=== PATIENT | female | born 1990 | race Caucasian/White ===

== ENCOUNTER 2024-11-02 22:40 | Inpatient (IN) | payer SELFPAY ==
--- OUTSIDE RECORDS SUMMARY | 2019-01-23 09:40 | XMS_ITS | Continuity of Care Document ---
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 Name Role Phone Clarisa Meyer Unavailable Unavailable Allergies, Adverse Reactions, Alerts Substance Reaction Status Criticality No Known Allergies Active No Inform ation Medications Medication Instructions Dosage Effective Dates (start - stop) Status Comments nicotine 21 mg/24 hr daily transdermal patch apply 1 patch by transdermal route every day and remove at bedtime 21 MG - Active Problems Condition Type Effective Dates (start - stop) Clini gerry Status Comments No Known Problems Procedures Procedure Date PREV VISIT, NEW, AGE 18-39 IMMUNIZATION ADMIN FLU VAC NO PRSV 4 KYLE 6 Months+ HIV ANTIGEN W/HIV ANTIBODIES SIALIDASE ENZYME ASSAY RPR CHLAMYDIA/GONNORRHEA TRICHOMONAS VAGINALIS AMPLIF THINPREP TIS PAP AND HPV mRNA E6/E7 REFL EX HPV 16,18/45 Patient Left / No Show Results Test Name Date and Time Measure Units Reference Range Abnormal Flag Status Comments Panel Description: BV Enzyme Activity Final BV Enzyme Activity 15:12:11 Negative Negative Final Panel Description: HIV 1+2 Ab+HIV1 p24 Ag Final HIV-1/2 Ag/Ab 15:24:00 Negative Negative Final Panel Description: RPR w/Reflex Final RPR w/Reflex 15:24:00 Non-reactiv e Non-reactiv e Final Panel Description: Chlam/GC/Trich-swab Final Chlamydia 15:12:11 Not Detected Not Detected Final N gonorrhoeae 15:12:11 Not Detected Not Detected Final Trichomonas 15:12:11 Not Detected Not Detected Final Panel Description: Human pap illoma virus 16+18+31+33+35+39+45+51+52+56+58+59+66+68 E6+E7 mRNA Final CLINICAL INFORMATION: 15:12:11 SEE NOTE Final Routine exam LMP: 15:12:11 [id number] Final PREV. PAP: 15:12:11 SEE NOTE Final 2017 NORMAL PREV. BX: 15:12:11 SEE NOTE Final AGE 16 SHOWED HPV SOURCE: 15:12:11 Cervix Final STATEMENT OF ADEQUACY: 15:12:11 SEE NOTE Final Satisfactory f or evaluation.Endocer vical/transformati on zone componentpresent. INTERPRETATION /RESULT: 15:12:11 SEE NOTE Final Negative for intraepithelial lesion or malignancy. COMMENT: 15:12:11 SEE NOTE Final This Pap test has been evaluated with computerassisted technology. CYTOTECHNOLOGI ST: 15:12:11 SEE NOTE Final SANCHEZ, CT(ASCP)C T Screening location:[facility] [address] [place] [address] [address]: 15:12:11 SEE NOTE Final ABC, CT(ASCP)C T screening location: [place] [address] [place] [address] COMMENT 15:12:11 SEE NOTE Final EXPLANATORY NO TE: The Pap is a screening test for cervical cancer. It is not a diagnostic test and is subject to false negative and false positive results. It is most reliable when a satisfactory sample, regularly obtained, is submitted with relevant clinical findings and history, and when the Pap result is evaluated along with historic and current clinical information. HPV mRNA E6/E7 15:12:11 Not Detected Not Detected Final This test was performed using the APTIMA HPV Assay ([employer] This assay detects E6/E7 viral messenger RNA (mRNA) from 14high-risk HPV types (16,18,31,33,35,39 ,45,51,52,56,58,59 ,66,68). The analytical performance characteristics ofthis assay have been determined by deltamethod. The modifications have not beencleared or approved by the FDA. This assay hasbeen validated pursuant to the CLIA regulationsand is used for clinical purposes. Advance Directives Directive Yes / No Effective Date File Name No Information Encounters Encounter Description Practice Location Reason(s) For Visit Diagnoses Date Provider Providers Copied on Encounter PREV VISIT, NEW, AGE 18-39 [facility], [id number], [id number], [place] tel:[phone] [facility] preventive exam (chief complaint) Encounter for gynecological exam w/o abnormal findingRoutine screening for STI (sexually transmitted infection) Vicenta Mckenna. [address] [place] [address], [id number] , [place]. tel:[phone] Referring Provider: Clarisa Yadav, [address] [place] [address], [id number] . tel:[phone] [facility], [id number], [id number], [place] tel:[phone] [facility] No Information 9 Vicenta Mckenna. [address] [place] [address], [id number] , [place]. tel:[phone] Referring Provider: Clarisa Yadav, [address] [place] [address], [id number] . tel:[phone] Family History Family Member Type Diagnosis Age At Onset No Information Immunizations Vaccine Date Status Comments Flu Vaccine 6 Months and older administered Note: VIS 11/14/2018 given 01/23/2019 RICK SANCHEZ ; Source: New Immunization Record Payers Payer name Insurance type Covered alliance party ID Authoriza brandi(s) M [employer] Choice Plus CI [id number] M [employer] Choice Plus [id number] Social History Type Description Quantity Date Captured Comments Alcohol Use Details Unknown Caffeine Use Details Unknown Tobacco Use Status Smoking Status Current some day smoker Smoking Tobacco Use Details Cigarette: Age Started: 28 Cigarette: No Details Available Sex Female Sexual Orientation Heterosexual Gender Identity Female Vital Signs Date / Time: Height Weight BMI Pulse Rate Blood Pressure Temperature Respiratory Rate Body Surface Area Head Circumference Head Circ. Percentile Wt./Flaco. Percentile BMI percentile Pulse Ox Inhaled Ox 2:40 PM 60.50 in 66.043 kg (145.60 lbs) 27.9 7 kg/m eter (2) 75 /min 110/74 mm[Hg] 98.00 F 18 /min 1.68 meter(2) 99 % Chief Complaint And Reason For Visit From encounter dated '01/23/2019 14:40'. preventive exam (chief complaint). Description: Currently : no. : 1. Parity: Term: 1. Livin. Patient is not contemplating . The patient states she uses condoms, male for control. Last LMP was 12/28/2018. Her menses is regular with normal flow with a frequency of every 28 days. Negative for dysmenorrhea and menorrhagia. Negative for: breast discharge, breast lump(s), breast pain and breast self exam. Menopausal symptoms negative for: hot flashes, insomnia, nightsweats and vaginal dryness. Pertinent negatives include vaginal discharge and vaginal itching. She does not take calcium. She does not take Vitamin D. She does not take multivitamins. She does not take Folic acid. The patient does use tobacco. Tobacco cessation has been discussed. Additional information: last pap around 2017- normal, she found out she has hpv at age 14, she did have biopsy of hercervix at 14 and it was normal other than hpv. pt used dull razor and now has ingrown hairs/spots, wants to be tested. Reason For Referral Reason For Referral No Information History Of Present Illness Encounter Date Complaint History Of Prese nt Illness preventive exam Currently pregna nt: no. : 1. Parity: Term: 1. Livin. Patient is not contemplating . The patient states she uses condoms, male for control. Last LMP was 12/28/2018. Her menses is regular with normal flow with a frequency of every 28 days. Negative for dysmenorrhea and menorrhagia. Negative for: breast discharge, breast lump(s), breast pain and breast self exam. Menopausal symptoms negative for: hot flashes, insomnia, night sweats and vaginal dryness. Pertinent negatives include vaginal discharge and vaginal itching. She does not take calcium. She does not take Vitamin D. She does not take multivitamins. She does not take Folic acid. The patient does use tobacco. Tobacco cessation has been discussed. Additional information: last pap around 2017- normal, she found out she has hpv at age 14, she did have biopsy of her cervix at 14 and it was normal other than hpv. pt used dull razor and now has ingrown hairs/spots, wants to be tested. Functional Status Date Functional Assessmen t Pain Score 0/10 Instructions Date Instruction Additional Infor ida will do sti screenin g and contact pt with results Related to Routine screening for STI (sexually transmitted infection) cbe, pelvic and pap performed todaywe will contact pt with results Related to Encounter for gynecological exam w/o abnormal finding Weight control education Related to Encounter for gynecological exam w/o abnormal finding Assessments Type Assessment Date assessment Encounter for gynecological exam w/o abnormal finding assessment Routine screening for STI (sexua lly transmitted infection) Mental Status Date Cognitive Assessment Orientation - Wall ed to time, place, person, situation. Patient Care Teams Name Effective Dates (start - stop) Status Members No Information
[2024-11-02 22:41] VITALS: BP 122/69; PULSE 90; RESP 18; TEMP 36.8; O2SAT 96; BMI 25.3
--- NOTE | 2024-11-02 22:43 | XRR_ITS ---
PROCEDURE INFORMATION: Exam: XR Chest Exam date and time: 11/02/2024 10:54 PM Age: 34 years old Clinical indication: Injury or trauma; Fall; Blunt trauma (contusions or hematomas); Patient states she fell out of a tree that she climbed because she was being chased by dogs. C/O left rib pain. Admits to methamphetamine use. TECHNIQUE: Imaging protocol: Radiologic exam of the chest. Views: 1 view. COMPARISON: No relevant prior studies available. FINDINGS: Lungs: Unremarkable. No consolidation. Incidentally noted azygos lobe. Pleural spaces: Unremarkable. No pleural effusion. No pneumothorax. Heart/Mediastinum: Unremarkable. No cardiomegaly. Bones/joints: Unremarkable. XR/XR chest 1V portable [id number] IMPRESSION: No acute findings.
--- NOTE | 2024-11-02 22:43 | CTR_ITS ---
PROCEDURE INFORMATION: Exam: CT Head Without Contrast Exam date and time: 11/02/2024 11:00 PM Age: 34 years old Clinical indication: Injury or trauma; Fall; Blunt trauma (contusions or hematomas); Patient states she fell out of a tree that she climbed because she was being chased by dogs. Abrasion to frontal. Admits to methamphetamine use. TECHNIQUE: Imaging protocol: Computed tomography of the head without contrast. Radiation optimization: All CT scans at this facility use at least one of these dose optimization techniques: automated exposure control; mA and/or kV adjustment per patient size (includes targeted exams where dose is matched to clinical indication); or iterative reconstruction. COMPARISON: No relevant prior studies available. RADIATION DOSE METRICS: Total DLP (mGy-cm): 1760.69 FINDINGS: Brain: Normal. No hemorrhage. Unremarkable white matter. No mass effect. Cerebral ventricles: No ventriculomegaly. Paranasal sinuses: Visualized sinuses are unremarkable. No fluid levels. Mastoid air cells: Visualized mastoid air cells are well aerated. Bones: Unremarkable. No acute fracture. Soft tissues: Unremarkable. CT/CT head wo con* [id number] IMPRESSION: No acute intracranial abnormality.
--- NOTE | 2024-11-02 22:48 | PC.NURSE ---
Pt unable to answer suicide assessment question due to being under the influence of Methamphetamine.
--- NOTE | 2024-11-02 22:52 | W.ED.PSYCHS ---
HPI - Psych General: Chief Complaint: Psychiatric Symptoms Stated Complaint: SUBSTANCE ABUSE Time Seen by Provider: 11/02/24 22:40 Source: patient Mode of arrival: ambulatory Limitations: no limitations History of Present Illness: 34-year-old female who states that she has been using meth today patient is quite psychotic police were called because she was trying to climb trees and was acting very erratic she had had fell out of a tree she is unsure how far she denies any injuries but does have an abrasion to her head. Patient has flight of ideas here and is not safe on her own. She believe that she had been chased by dogs. Associated symptoms: Reports auditory hallucinations Related Data Home Medications ?Medication ?Instructions ?Recorded ?Confirmed No Known Home Medications 04/23/24 04/23/24 Allergies Allergy/AdvReac Type Severity Reaction Status Date / Time No Known Allergies Allergy Unverified 04/23/24 12:13 Review of Systems Const: Denies: fever(s), chills, body aches or change in appetite ENMT: Denies: throat pain or dental pain Card: Denies: chest pain Resp: Denies: dyspnea GI: Denies: abdominal pain, nausea, vomiting or diarrhea : Denies: dysuria Musc: Denies: neck pain or back pain Skin/Breast: Denies: rash Neuro: Denies: headache(s) Psych: Reports: paranoia and auditory hallucinations [facility] ED PFSH: Social History Smoking and tobacco/nicotine status: current every day tobacco/nicotine user Physical Exam Const: COMMON NORMALS: patient oriented x3 HENMT: COMMON NORMALS: normocephalic and atraumatic HEAD & SCALP: normocephalic and atraumatic Eye: COMMON NORMALS: Equal, round and reactive pupils present and EOMs intact bilaterally PUPIL: Yes Equal, round and reactive pupils present Neck/C-Spine: COMMON NORMALS: full ROM and supple Chest: COMMONS NORMALS: normal inspection of the chest Resp: COMMON NORMALS: normal respiratory effort, No retractions, No use of accessory muscles and clear to auscultation bilaterally AUSCULTATION: clear to auscultation bilaterally Cardio: COMMON NORMALS: regular rate, regular rhythm and No murmurs present (Cardio) RATE: regular rate RHYTHM: regular rhythm GI: COMMON NORMALS: Normal to inspection, nondistended, normoactive bowel sounds present, Soft to palpation, non-tender and no masses PALPATION: Yes Soft to palpation Extremity: COMMON NORMALS: normal to inspection and full ROM Neuro: COMMON NORMALS: patient oriented x3, moves all extremities and no focal motor deficits Psych: COMMON NORMALS: cooperative ATTITUDE: Yes paranoid and Yes Belligerent attititude/behavior present ACTIVITY/MOTOR BEHAVIOR: Yes fidgeting and Yes hyperactivity Skin: COMMON NORMALS: no rashes or lesions noted and no wounds GENERAL SKIN EXAM: no rashes or lesions noted Course Vital Signs: Vital signs: Vital Signs Temperature 98.2 F 11/02/24 22:41 Pulse Rate 90 11/02/24 22:41 Respiratory Rate 18 11/02/24 22:41 Blood Pressure 122/69 11/02/24 22:41 Pulse Oximetry 96 11/02/24 22:41 Oxygen Delivery Me thod Room Air 11/02/24 22:41 MDM - Psych Medical Decision Making Patient presents with 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 Spoke to psychiatrist will admit Medical Records I reviewed the patient's medical records. Lab Data Radiology Impressions Head CT 11/02/24 22:43 IMPRESSION: No acute intracranial abnormality. 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
[2024-11-02] MEDS: LORazepam 1 MG/0.5 ML injection 2 MG IM (23:21)
--- NOTE | 2024-11-02 23:44 | PC.NURSE ---
96 [facility] Pt served with copy of 96 [facility] by this RN and security. Pt alert, but not able to accurately comprehend information. Pt speaking quickly and a lot, with flight of ideas. No questions at this time, pt stated is someone climbing up a tree not grounds enough to hold someone on?
[2024-11-02 23:59] LABS: Hematocrit 41.7 % (36-47); Hemoglobin 14.30 g/dL (11.27-16.99); Mean Corpuscular HGB Conc 34.3 g/dL (30-55); Mean Corpuscular Hemoglobin 30.6 pg (27-33); Mean Corpuscular Volume 89.3 fl (85-98); Nucleated Red Blood Cells % 0 %; Platelet Count 320 10^3/cmm (157-399); Red Blood Count 4.67 10^6/uL (3.85-5.65); White Blood Count 20.23 10^3/uL (3.29-11.43)
[2024-11-03] VITALS (10 sets, daily range): BP systolic 86–118; BP diastolic 55–73; PULSE 66–87; RESP 16–18; TEMP 36.6–37.1; O2SAT 91–99
[2024-11-03 00:10] LABS: Alanine Aminotransferase 16 U/L (0-33); Albumin Level 4.1 g/dL (3.5-5.2); Alkaline Phosphatase 75 U/L (35-105); Anion Gap 18.1 (5-19); Aspartate Amino Transferase 28 U/L (0-32); Blood Urea Nitrogen 12 mg/dL (6-20); Calcium 8.9 mg/dL (8.5-10.5); Carbon Dioxide 19 mmol/L (22-29); Chloride 105 mmol/L (98-107); Creatinine Clr Calc Pharmacy 75.3135; Globulin 2.9 g/dL (1.3-4.6); Glucose 96 mg/dL (65-115); Osmolality Calculated 286 mOsm/kg (285-295); Potassium 4.1 mmol/L (3.5-5.1); Sodium 138 mmol/L (136-145); Total Protein 7.0 g/dL (6.6-8.7)
[2024-11-03 00:11] LABS: Acetaminophen < 5.0 ug/mL (10-30); Alcohol Level < 10 mg/dL (0-10); Salicylate < 0.3 mg/dL (3-10)
[2024-11-03 01:30] LABS: HCG Qualitative Urine. Negative (Negative)
[2024-11-03 01:40] LABS: Glucose Urine UA Negative (Normal); Nitrate Urine Negative (Negative); Specific Gravity, Urine 1.015 (1.005-1.030)
[2024-11-03 01:43] LABS: Add Urine Microscopic? YES
[2024-11-03 01:55] LABS: UA Slide Review UA Slide Review Perf
[2024-11-03 01:59] LABS: PCP Screen Urine Negative (Negative)
--- NOTE | 2024-11-03 02:07 | CTR_ITS ---
PROCEDURE INFORMATION: Exam: CT Abdomen And Pelvis Without Contrast Exam date and time: 11/03/2024 2:25 AM Age: 34 years old Clinical indication: Abnormal findings; Abnormal lab test; Elevated wbc; Wbc of 20k with microhematuria. ; Additional info: White count 20,000, cystitis TECHNIQUE: Imaging protocol: Computed tomography of the abdomen and pelvis without contrast. Sagittal and coronal reformatted images were also reviewed. Radiation optimization: All CT scans at this facility use at least one of these dose optimization techniques: automated exposure control; mA and/or kV adjustment per patient size (includes targeted exams where dose is matched to clinical indication); or iterative reconstruction. COMPARISON: CR (CHEST, ) 11/02/2024 10:54 PM RADIATION DOSE METRICS: Total DLP (mGy-cm): 693.39 FINDINGS: Limitations: Evaluation of solid organs and vasculature is limited without intravenous contrast. Lungs: Visualized lungs are clear. Pleural spaces: No pleural effusion. Heart: Visualized portions of the heart are unremarkable. Liver: The liver is unremarkable. Gallbladder and biliary ducts: The gallbladder is unremarkable. No biliary ductal dilatation. Pancreas: The pancreas is unremarkable. No pancreatic ductal dilatation. Spleen: The spleen is unremarkable. Adrenal glands: The right and left adrenal glands are unremarkable. Kidneys and ureters: The right and left kidneys are unremarkable. The right and left ureters are unremarkable. Stomach and bowel: Fluid within the small bowel and colon without evidence of bowel wall thickening. Appendix: The appendix is visualized and is unremarkable. No findings to suggest acute appendicitis. Intraperitoneal space: No free intraperitoneal air. No ascites. No loculated fluid collections to suggest an abscess. Vasculature: No evidence for aortic aneurysm. Lymph nodes: No lymphadenopathy. Urinary bladder: Limited visualization of the pelvis due to streak artifact. No acute abnormality of the bladder otherwise. Reproductive: Unremarkable as visualized. Bones/joints: No acute fracture. Soft tissues: No acute abnormality in the extra-abdominal soft tissues. CT/CT kidney stone [id number] IMPRESSION: 1. Fluid within the small bowel and colon without evidence of bowel wall thickening. This may reflect viral gastroenteritis in the appropriate clinical situation. 2. Incidental/nonacute findings are listed in the report.
[2024-11-03 02:25] LABS: Lactic Sepsis W/Reflex 1.5 mmol/L (0.5-2.2)
[2024-11-03] MEDS: cefTRIAXone 1,000 mg SDV 1000 MG IVP (02:32)
--- NOTE | 2024-11-03 06:52 | PM.HP ---
Providers/Chief Complaint Admitting Physician: MARIA DOLORES MELÉNDEZ DO Primary Care Provider: Anna Marie Chandler NP Chief Complaint: SUBSTANCE ABUSE History of Present Illness Leah Rosa is a 34 year old female with medical history significant for drug use and abuse especially methamphetamine. Patient had gotten into methamphetamine induced psychosis for that reason patient was supposed to go to [facility] to be optimized. Upon arriving to the emergency room patient was evaluated and the urinalysis showed the patient has urinary tract infection with a white count of 20,000. Because of white count of 28,000 the [facility] will not take this patient and they wanted patient to be optimized before I can come in for hide care of methamphetamine induced psychosis. I have ordered antibiotics with ceftriaxone 2 g IV and daily. Patient was admitted this morning after 12 midnight optimized and then sent patient to psych. Review of Systems Narrative: System review upon 10 organ review were entirely unremarkable except for patient being psychotic after taking methamphetamine. Medications/Allergies Home Medications ?Medication ?Instructions ?Recorded ?Confirmed ?Last Taken ?Type No Known Home Medications 04/23/24 04/23/24 Unknown History Allergies Allergy/AdvReac Type Severity Reaction Status Date / Time No Known Allergies Allergy Unverified 04/23/24 12:13 PFSH Acute PFSH: Social History Smoking and tobacco/nicotine status: current every day tobacco/nicotine user Vitals/I&O/Wt Last Vital Signs Temp 98.2 F 11/02/24 22:41 Pulse 78 11/03/24 04:00 Resp 16 11/03/24 04:00 BP 118/62 11/03/24 04:00 Pulse Ox 98 11/03/24 04:00 O2 Del Method Room Air 11/03/24 04:00 Weight last 48 hrs Weight 62.868 kg Physical Exam Narrative: Patient is seen and evaluated Sleepy not waking up in bed very comfortable and on room air. HEENT normocephalic atraumatic neck neck is supple cardiovascular heart rate is regular lungs are pretty much clear abdomen soft nontender nondistended unremarkable extremities are intact no edema has good pulses neurology has no focality lab studies lab studies reviewed and noted for elevated white count and urinary tract infection. Data 11/02/24 23:43 11/02/24 23:43 A&P Assessment and plan 1. UTI (urinary tract infection): UTI Admit to general medical floor ICU per protocol because of drug-induced psychosis patient is on room air and hemodynamically stable Patient on ceftriaxone follow-up with cultures and optimize accordingly IV fluid initiated on this patient. 2. Acute psychosis: Patient with acute psychosis due to drug use of methamphetamine Patient slept well overnight and on ED hold Patient was given Ativan by the emergency room department I did not give anything patient is doing okay and has been sleeping Drug-induced psychosis deferred to psychiatry Psychiatry will not take the patient because of elevated white count with UTI They would like patient optimized and then they will take the patient Plan: See above. GI and DVT prophylaxis in place PDMP PDMP Reviewed: Not Reviewed Attestations Medical Necessity Statement*: Patient with much white count and UTI and also undergoing drug-induced psychosis with this of at least 2 midnights to optimize care. Coding Level of Care Code Acute Code for [facility] Diagnoses UTI (urinary tract infection) N39.0 Acute psychosis F23 Time Spent (min) 60
--- NOTE | 2024-11-03 07:03 | PC.NURSE ---
ASSUMED CARE OF PT AT 0700 FROM [facility]. BLOOD CULTURES ORDERED AT 0207. DEVELOPMENT REPRESENTATIVE RNTAMARA, ADMINISTERED ANTIBIOTICS AT 0232. BOTH SETS OF BLOOD CULTURES WERE NOT OBTAINED PRIOR TO ANTIBIOTIC ADMINSTRATION. ANOTHER SET OF ANTIBIOTICS ORDERED AT 0700. THIS NURSE NOTIFIED DR. URBAN OF SITUATION AND ASKED IF HE STILL WANTED BLOOD CULTURES DRAWN. DR. URBAN GAVE VERBAL ORDERS TO PROCEED WITH BLOOD CULTURES PRIOR TO FURTHER ANTIBIOTIC ADMINISTRATION. LAB CALLED AND NOTIFIED AT THIS TIME.
[2024-11-03] MEDS: heparin 5,000 unit/mL INJ 1 mL 5000 UNIT SUBCUT (07:21)
[2024-11-03] MEDS: cefTRIAXone 2,000 mg SDV 2000 MG IVP (07:34)
[2024-11-03] MEDS: blistex lip oint 7 gm Tube 1 APPLIC TOPICAL (09:41)
[2024-11-03 14:04] LABS: Iron 41 ug/dL (37-145); Total Iron Binding Capacity 280 mcg/dl; Unsaturated Iron Binding 239 ug/dL (112-347)
[2024-11-03 14:18] LABS: HIV 1 & 2 Antigen Non-Reactive (Non-Reactiv)
[2024-11-03 14:29] LABS: Hepatitis A Antibody IgM Non-Reactive (Nonreactive); Hepatitis B Surface Antigen Non-Reactive (Nonreactive)
--- NOTE | 2024-11-03 14:53 | PC.NURSE ---
During assessment the pt had scratches in various areas all over the body,tattoos upper shoulder, right thigh. there was a small cut underneath her left big toe that appeared to be healing fine
--- NOTE | 2024-11-03 15:00 | PC.ADMIT ---
Homeless Admission Note: The patient,Leah Rosa,34 y/o, was given written information regarding hospital policies, unit procedures and contact persons. Patient's smoking status: current every day smoker. Vital Signs - 8 hr 11/03/24 07:35 11/03/24 08:57 11/03/24 12:18 Temperature Pulse Rate 69 66 76 Respiratory Rate 16 16 Blood Pressure 95/58 107/72 107/67 Pulse Oximetry 98 98 97 Oxygen Delivery Method Room Air Room Air Room Air 11/03/24 12:35 11/03/24 13:20 11/03/24 13:47 Temperature 97.8 F Pulse Rate 74 73 Respiratory Rate 16 Blood Pressure 107/67 110/73 Pulse Oximetry 97 94 Oxygen Delivery Method Room Air During assessment the pt had scratches in various areas all over the body,tattoos upper shoulder, right thigh. there was a small cut underneath her left big toe that appeared to be healing fine
--- NOTE | 2024-11-03 15:09 | P.NPUHP_ITS ---
Providers/Chief Complaint 2 Admitting Physician: Maria Dolores Castillo MD Primary Care Provider: Anna Marie Chandler NP Chief Complaint: SUBSTANCE ABUSE HPI NPU History of Present Illness Leah Rosa is a 34 year old female who presented to the emergency department with increased confusion with complaints about how she had felt paranoid and stated that she feels that others around her were somehow trying to get her. She was admitted to the neuropsychiatric unit for further evaluation and treatment. She was a poor historian but described having used methamphetamine for a few years. She had endorsed a history of IV drug use and reported a past history of alcohol use as well. The patient had denied any depression. She denied any prior history of inpatient hospitalizations. She reports that she does have a past history of being quite confused when taking amphetamines. Her urine drug screen was positive for amphetamines and marijuana. The patient had endorsed that she has been living in [place] for approximately 1-1/2 years and states that she has been homeless for a period of time. She reports that she had been climbing up a tree in order to avoid a dog from biting her. She states that the tree had been cut down by a woman named Violeta and she reports that she had fallen on her head. The patient's CT was negative here at the hospital. The patient denies having any thoughts of hurting herself or others. She reports that she uses marijuana to help her manage her moods. Psychiatric history: She had reported no prior history of inpatient hospitalizations. She reported no outpatient treatment currently. Substance abuse history: She reports using alcohol on a regular basis along with a history of methamphetamine use for at least 3 years along with routine daily use of marijuana. Medical history: None reported Surgical history: None Allergies: Pollen Medications: None Legal history: She had reported that she had been 3-1/2 months in assisted here for a DUI from the use of alcohol. She had also reported having been arrested and put on a restraining order from her grandmother lives in [facility]. Family psychiatric history: None reported Social history: The patient reports that she was raised in [facility] and was adopted by her grandmother at the age of 4 as her biological parents had been neglectful and were unable to take care of her. She reported that she has been previously and has a 14-year-old son that lives with the patient's grandmother. She reports that she had moved to [place] a year and a half ago after giving up a good job working at [employer] and stated that she is currently unemployed and living in an that she owns. Meds NPU Home Medications ?Medication ?Instructions ?Recorded ?Confirmed ?Last Taken ?Type No Known Home Medications 04/23/24 08/0 07/25 Unknown History Allergies Allergy/AdvReac Type Severity Reaction Status Date / Time No Known Allergies Allergy Unverified 04/23/24 12:13 PFSH NPU 2 PFSH: Social History Smoking and tobacco/nicotine status: current every day tobacco/nicotine user Mental Status Exam 2 MSE Comments: She is a casually dressed white female with poor hygiene who was laying down in her bedroom in the dark and appeared her stated age. She was alert and oriented to person place month and year but not date. There was no evidence of any abnormal involuntary motor movements tics or tremors appreciated. Her speech was normal in regards to volume with decreased rate and normal prosody. Her mood was described as okay. Her affect appeared odd and subdued. Her thought process was tangential and circuitous. Her thought content revealed no suicidal or homicidal ideation. There was some ideas of reference although no evidence of delusional thinking but some vague paranoia. She did not actively appear to be responding to internal stimuli. Her attention span was poor. Her recent and remote memory appeared poor. Her insight was poor. Her judgment was poor. Her impulse control appeared limited. Vitals/I&O/Wt Last Vital Signs Temp 97.8 F 11/03/24 13:20 Pulse 73 11/03/24 13:20 Resp 16 11/03/24 13:20 BP 110/73 11/03/24 13:20 Pulse Ox 94 11/03/24 13:20 O2 Del Method Room Air 11/03/24 13:47 11/03/24 11/03/24 11/03/24 06:59 14:59 22:59 Intake Total 501.666 / 501.666 Balance 501.666 / 501.666 Weight last 48 hrs Weight 62.868 kg Data NPU 11/02/24 23:43 11/02/24 23:43 Micro: Microbiology 11/03/24 07:28 Blood Culture - Preliminary Blood SPECIMEN COLLECTED 11/03/24 07:25 Blood Culture - Preliminary Blood SPECIMEN COLLECTED Microbiology 11/03/24 07:28 Blood Blood Culture - Preliminary SPECIMEN COLLECTED 11/03/24 07:25 Blood Blood Culture - Preliminary SPECIMEN COLLECTED A&P Assessment and plan 1. Substance-induced psychotic disorder: Plan: 34-year-old female who presents with likely substance-induced psychosis currently on antibiotics for likely urinary tract infection as well. #1.? Engage patient in individual milieu and group therapy. #2?? Recommend sober living treatment at the highest level of care to which the patient is willing to commit #3???Trial of zyprexa 5mg at night for stimulant induced psychosis. #4?? TO-15 minute checks? #5?? Will attempt to gather collateral information PDMP PDMP Reviewed: Not Reviewed Involuntary Hold Information 2 Hold Status: Legal Status: 96 Hour Hold Attestations NPU 2 Medical Necessity Statement*: Inpatient hospitalization is medically necessary and deemed to be the clinically appropriate intervention at this time. Medications will be adjusted and initiated as indicated.? The patient will be hospitalized for at least 2 midnights.? The patient?s likely length of stay is 3-5 days. ? Coding Level of Care Code Acute Code for Chg Fwd Diagnoses Substance-induced psychotic disorder F19.959
[2024-11-04 06:00] VITALS: BP 100/60; PULSE 66; RESP 16; TEMP 37.2; O2SAT 98
[2024-11-04 11:15] LABS: Hematocrit 38.6 % (36-47); Hemoglobin 12.80 g/dL (11.27-16.99); Mean Corpuscular HGB Conc 33.2 g/dL (30-55); Mean Corpuscular Hemoglobin 30.7 pg (27-33); Mean Corpuscular Volume 92.6 fl (85-98); Nucleated Red Blood Cells % 0 %; Platelet Count 261 10^3/cmm (157-399); Red Blood Count 4.17 10^6/uL (3.85-5.65); White Blood Count 8.53 10^3/uL (3.29-11.43)
[2024-11-04 11:29] LABS: Alanine Aminotransferase 16 U/L (0-33); Albumin Level 3.3 g/dL (3.5-5.2); Alkaline Phosphatase 63 U/L (35-105); Anion Gap 11.2 (5-19); Aspartate Amino Transferase 24 U/L (0-32); Blood Urea Nitrogen 10 mg/dL (6-20); Calcium 8.3 mg/dL (8.5-10.5); Carbon Dioxide 22 mmol/L (22-29); Chloride 111 mmol/L (98-107); Creatinine Clr Calc Pharmacy 96.8317; Globulin 2.3 g/dL (1.3-4.6); Glucose 90 mg/dL (65-115); Magnesium 3.5 mg/dL (1.7-2.3); Osmolality Calculated 289 mOsm/kg (285-295); Potassium 4.2 mmol/L (3.5-5.1); Sodium 140 mmol/L (136-145); Total Protein 5.6 g/dL (6.6-8.7)
[2024-11-04 14:00] VITALS: BP 110/72; PULSE 70; RESP 18; TEMP 37; O2SAT 98
--- NOTE | 2024-11-04 15:22 | P.NPUPN_ITS ---
Subjective NPU 2 Subjective: 34-year-old female admitted with psychos is with reported use of methamphetamine. The patient had slept better. She reports that she is feeling better. She had expressed some difficulties with remembering specific events but stated that she did feel that she was on the top of the tree that had been chopped down because there were dogs that were present that were attempting to harm her. She reports that later when she had fallen down off the tree, the dogs were not present. She had reported no problems with mood. She denied any auditory or visual hallucinations. She had reported no prior history of substance abuse treatment but reported that her methamphetamine use was infrequent. Mental Status Exam 2 MSE Comments: She is a casually dressed white female with poor hygiene who was laying down in her bedroom in the dark and appeared her stated age. She was alert and oriented to person, place, and time today. There was no evidence of any abnormal involuntary motor movements tics or tremors appreciated. Her speech was normal in regards to volume with decreased rate and normal prosody. Her mood was described as allright. Her affect appeared euthymic. Her thought process was more linear today although still circuitous. Her thought content revealed no suicidal or homicidal ideation. There was some ideas of reference although no evidence of delusional thinking but some vague paranoia. She did not actively appear to be responding to internal stimuli. Her attention span was poor. Her recent and remote memory appeared limited. Her insight was poor. Her judgment was poor. Her impulse control appeared better. Vitals/I&O/Wt Last Vital Signs Temp 98.9 F 11/04/24 06:00 Pulse 66 11/04/24 06:00 Resp 16 11/04/24 06:00 BP 100/60 11/04/24 06:00 Pulse Ox 98 11/04/24 06:00 O2 Del Method Room Air 11/03/24 13:47 Weight last 48 hrs Weight 62.868 kg Data NPU 11/04/24 10:55 11/04/24 10:55 Micro: Microbiology 11/03/24 01:30 Urine Culture - Preliminary Urine,Clean Catch 11/03/24 07:28 Blood Culture - Preliminary Blood NEGATIVE TO DATE 11/03/24 07:25 Blood Culture - Preliminary Blood NEGATIVE TO DATE Microbiology 11/03/24 01:30 Urine,Clean Catch Urine Culture - Preliminary 11/03/24 07:28 Blood Blood Culture - Preliminary NEGATIVE TO DATE 11/03/24 07:25 Blood Blood Culture - Preliminary NEGATIVE TO DATE A&P Assessment and plan 1. Substance-induced psychotic disorder: Plan: 34-year-old female who presents with likely substance-induced psychosis currently on antibiotics for likely urinary tract infection as well. #1.? Engage patient in individual milieu and group therapy. #2?? Recommend sober living treatment at the highest level of care to which the patient is willing to commit #3???Cpntinue zyprexa 5mg at night for stimulant induced psychosis. #4?? TO-15 minute checks? #5?? Will attempt to gather collateral information PDMP PDMP Reviewed: Not Reviewed Involuntary Hold Information 2 Hold Status: Legal Status: 96 Hour Hold Date/Time Hold Expires: 11/07/2024 @ 1201 Attestations NPU 2 Medical Necessity Statement*: Inpatient hospitalization is medically necessary and deemed to be the clinically appropriate intervention at this time. Medications will be adjusted and initiated as indicated.? ? The patient?s likely length of stay is 1-2 days. ? Coding Level of Care Code Acute Code for [facility] Fwd Diagnoses Substance-induced psychotic disorder F19.959
[2024-11-04 19:42] VITALS: BP 93/63; PULSE 60; RESP 18; TEMP 36.7; O2SAT 99
[2024-11-05 06:00] VITALS: BP 100/62; PULSE 60; RESP 15; TEMP 37; O2SAT 98
[2024-11-05 08:39] LABS: Alanine Aminotransferase 19 U/L (0-33); Albumin Level 3.2 g/dL (3.5-5.2); Alkaline Phosphatase 58 U/L (35-105); Anion Gap 16.0 (5-19); Aspartate Amino Transferase 24 U/L (0-32); Blood Urea Nitrogen 10 mg/dL (6-20); Calcium 8.0 mg/dL (8.5-10.5); Carbon Dioxide 18 mmol/L (22-29); Chloride 110 mmol/L (98-107); Creatinine Clr Calc Pharmacy 84.7277; Globulin 2.4 g/dL (1.3-4.6); Glucose 150 mg/dL (65-115); Osmolality Calculated 292 mOsm/kg (285-295); Potassium 4.0 mmol/L (3.5-5.1); Sodium 140 mmol/L (136-145); Total Protein 5.6 g/dL (6.6-8.7)
--- NOTE | 2024-11-05 12:05 | P.NPUDS_ITS ---
Diagnoses at Discharge Discharge Diagnosis 1. Substance-induced psychotic disorder: Reason for Visit Reason for Visit: SUBSTANCE ABUSE Brief History: History of Present Illness Leah Rosa is a 34 year old female who presented to the emergency department with increased confusion with complaints about how she had felt paranoid and stated that she feels that others around her were somehow trying to get her. She was admitted to the neuropsychiatric unit for further evaluation and treatment. She was a poor historian but described having used methamphetamine for a few years. She had endorsed a history of IV drug use and reported a past history of alcohol use as well. The patient had denied any depression. She denied any prior history of inpatient hospitalizations. She reports that she does have a past history of being quite confused when taking amphetamines. Her urine drug screen was positive for amphetamines and marijuana. The patient had endorsed that she has been living in [place] for approximately 1-1/2 years and states that she has been homeless for a period of time. She reports that she had been climbing up a tree in order to avoid a dog from biting her. She states that the tree had been cut down by a woman named Violeta and she reports that she had fallen on her head. The patient's CT was negative here at the hospital. The patient denies having any thoughts of hurting herself or others. She reports that she uses marijuana to help her manage her moods. Psychiatric history: She had reported no prior history of inpatient hospitalizations. She reported no outpatient treatment currently. Substance abuse history: She reports using alcohol on a regular basis along with a history of methamphetamine use for at least 3 years along with routine daily use of marijuana. Medical history: None reported Surgical history: None Allergies: Pollen Medications: None Legal history: She had reported that she had been 3-1/2 months in residential here for a DUI from the use of alcohol. She had also reported having been arrested and put on a restraining order from her grandmother lives in [facility]. Family psychiatric history: None reported Social history: The patient reports that she was raised in [facility] and was adopted by her grandmother at the age of 4 as her biological parents had been neglectful and were unable to take care of her. She reported that she has been previously and has a 14-year-old son that lives with the patient's grandmother. She reports that she had moved to [place] a year and a half ago after giving up a good job working at [employer] and stated that she is currently unemployed and living in an that she owns. Hospital Course Hospital Course During the hospitalization, the patient had routine laboratory studies which were within normal limits except for a few outliers.? Additionally, there was a general medical evaluation which was also within normal limits and revealed no new acute processes.? At the time of discharge, lethality was denied and psychosis was resolving with the addition of zyprexa 5mg at night. Mood and anxiety were well managed.? The patient endorsed a plan to avoid all drugs of abuse and follow up with the aftercare recommendations of the treatment team.? The patient was evaluated and deemed to be absent credible lethality and had achieved the maximum benefit from an inpatient hospitalization, and so was discharged. The patient was discharged on two medications to help manage her urinary tract infection with outpatient follow up with primary physician necessary at the time of discharge. ? Involuntary Hold Information Hold Status: Legal Status: 96 Hour Hold Date/Time Hold Expires: 11/07/2024 @ 1201 Mental Status Exam MSE Comments: She is a casually dressed white female with limited hygiene who was in no acute distress. She was alert and oriented to person, place, and time today. There was no evidence of any abnormal involuntary motor movements tics or tremors appreciated. Her speech was normal in regards to volume with decreased rate and normal prosody. Her mood was described as okay. Her affect appeared euthymic on discharge. Her thought process was more linear today on discharge. Her thought content revealed no suicidal or homicidal ideation. There was no evidence of delusional thinking. She did not appear to be responding to internal stimuli. Her attention span was limited. Her recent and remote memory appeared limited. Her insight was poor. Her judgment was fair. Her impulse control appeared fair. Discharge Data Studies Completed and Pending: Completed Studies During Hospitalization Category Date Time Status CT head wo con* 7 0450 Stat Cat Scan 11/02/24 22:[address] kidney stone 7 4136 Stat Cat Scan 11/03/24 02:07 Completed XR chest 1V georgie ble 72082 Stat Exams 11/02/24 22:43 Completed Pending at discharge Category Date Time Status Blood Culture Sta t Lab 11/03/24 07:28 Results C.Diff PCR (Lab) Routine Lab 11/03/24 12:54 Ordered Comprehensive Met abolic Panel AM LA BS Lab 11/06/24 04:00 Ordered Lactoferrin Routi ne Lab 11/03/24 12:54 Ordered OVA and Parasites , Conc and PE Rout ine Lab 11/03/24 12:54 Ordered Salmonella / Shig alexus / Campy Routi ne Lab 11/03/24 12:54 Ordered Radiology Impressions Chest X-Ray 11/02/24 22:43 IMPRESSION: No acute findings. Head CT 11/02/24 22:43 IMPRESSION: No acute intracranial abnormality. Abdomen/Pelvis CT 11/03/24 02:07 IMPRESSION: 1. Fluid within the small bowel and co daniel without evidence of bowel wall thickening. This may reflect viral gastroenteritis in the appropriate clinical situation. 2. Incidental/nonacute findings are li sted in the report. Laboratory Results WBC 8.53 10^3/uL (3.2 9-11.43) 11/04/24 10:55 RBC 4.17 10^6/uL (3.8 5-5.65) 11/04/24 10:55 Hgb 12.80 g/dL (11.27 -16.99) 11/04/24 10:55 Hct 38.6 % (36-47) 11/04/24 10:55 MCV 92.6 fl (85-98) 11/04/24 10:55 MCH 30.7 pg (27-33) 11/04/24 10:55 MCHC 33.2 g/dL (30-55) 11/04/24 10:55 RDW 12.9 % (12.1-15.1 ) 11/04/24 10:55 Plt Count 261 10^3/cmm (157 -399) 11/04/24 10:55 MPV 9.3 fL (7.4-10.4) 11/04/24 10:55 Neut % (Auto) 65.9 % 11/04/24 10:55 Lymph % (Auto) 23.2 % 11/04/24 10:55 [place] % (Auto) 7.0 % 11/04/24 10:55 Eos % (Auto) 2.8 % 11/04/24 10:55 Baso % (Auto) 0.6 % 11/04/24 10:55 Neut # (Auto) 5.62 10^3/uL (1.8 -7.7) 11/04/24 10:55 Lymph # (Auto) 2.0 10^3/uL (0.8- 4.8) 11/04/24 10:55 [place] # (Auto) 0.6 10^3/uL (0.2- 0.9) 11/04/24 10:55 Eos # (Auto) 0.2 10^3/uL (0.0- 0.8) 11/04/24 10:55 Baso # (Auto) 0.1 10^3/uL (0.0- 0.1) 11/04/24 10:55 Nucleated RBC % (a uto) 0 % 11/04/24 10:55 Nucleated RBCs # 0.0 /100WBC 11/04/24 10:55 Sodium 140 mmol/L (136-1 45) 11/05/24 08:05 Potassium 4.0 mmol/L (3.5-5 .1) 11/05/24 08:05 Chloride 110 mmol/L (98-10 7) H 11/05/24 08:05 Carbon Dioxide 18 mmol/L (22-29) L 11/05/24 08:05 Anion Gap 16.0 (5-19) 11/05/24 08:05 BUN 10 mg/dL (6-20) 11/05/24 08:05 Creatinine 0.8 mg/dL (0.5-0. 9) 11/05/24 08:05 GFR Calculation 81.2 mL/min (90-1 30) L 11/05/24 08:05 Glucose 150 mg/dL (65-115 ) H 11/05/24 08:05 Calculated Osmolal ity 292 mOsm/kg (285- 295) 11/05/24 08:05 Lactic Acid 1.5 mmol/L (0.5-2 .2) 11/02/24 23:43 Calcium 8.0 mg/dL (8.5-10 .5) L 11/05/24 08:05 Phosphorus 3.1 mg/dL (2.5-4. 5) 11/04/24 10:55 Magnesium 3.5 mg/dL (1.7-2. 3) H 11/04/24 10:55 Iron 41 ug/dL (37-145) 11/02/24 23:43 TIBC 280 mcg/dl 11/02/24 23:43 % Saturation 14.6 % (20-50) L 11/02/24 23:43 Unsat Iron Binding 239 ug/dL (112-34 7) 11/02/24 23:43 Total Bilirubin 0.2 mg/dL (0.15-1 .2) 11/05/24 08:05 AST 24 U/L (0-32) 11/05/24 08:05 ALT 19 U/L (0-33) 11/05/24 08:05 Alkaline Phosphata se 58 U/L (35-105) 11/05/24 08:05 Total Protein 5.6 g/dL (6.6-8.7 ) L 11/05/24 08:05 Albumin 3.2 g/dL (3.5-5.2 ) L 11/05/24 08:05 Globulin 2.4 g/dL (1.3-4.6 ) 11/05/24 08:05 HCG, Qual Negative (Negati ve) 11/03/24 01:25 Urine Color Yellow (Yellow) 11/03/24 01:30 Urine Appearance Cloudy (CLEAR) A 11/03/24 01:30 Urine pH 5.0 (5-7) 11/03/24 01:30 Ur Specific Gravit y 1.015 (1.005-1.0 30) 11/03/24 01:30 Urine Protein 1+ (Negative) A 11/03/24 01:30 Urine Glucose (UA) Negative (Normal ) 11/03/24 01:30 Urine Ketones 2+ (Negative) H 11/03/24 01:30 Urine Blood 3+ (Negative) A 11/03/24 01:30 Urine Nitrate Negative (Negati ve) 11/03/24 01:30 Urine Bilirubin Negative (Negati ve) 11/03/24 01:30 Urine Urobilinogen 1.0 mg/dL (Negati ve) 11/03/24 01:30 Ur Leukocyte Dejah ase 2+ (Negative) A 11/03/24 01:30 Urine RBC 3-5 /hpf (0-2) 11/03/24 01:30 Urine WBC >100 /hpf (0-5) H 11/03/24 01:30 Ur Squamous Epith Cells 0-5 /hpf (0-5) 11/03/24 01:30 Amorphous Sediment Not Reportable 11/03/24 01:30 Urine Bacteria None seen /hpf (N ONE) 11/03/24 01:30 Hyaline Casts 18.18 /lpf 11/03/24 01:30 Urine Mucus 1+ /hpf 11/03/24 01:30 Urine Trichomonas 1+ /hpf H 11/03/24 01:30 Salicylates < 0.3 mg/dL (3-10 ) L 11/02/24 23:43 Urine Opiates Scre en Negative ng/mL (N egative) 11/03/24 01:30 Acetaminophen < 5.0 ug/mL (10-3 0) L 11/02/24 23:43 Ur Barbiturates Sc reen Negative ng/mL (N egative) 11/03/24 01:30 Ur Phencyclidine S crn Negative ng/mL (N egative) 11/03/24 01:30 Ur Amphetamines Sc reen Positive ng/mL (N egative) H 11/03/24 01:30 U Benzodiazepines Scrn Negative ng/mL (N egative) 11/03/24 01:30 Urine Cocaine Scre en Negative ng/mL (N egative) 11/03/24 01:30 U Marijuana (THC) Screen Positive ng/mL (N egative) H 11/03/24 01:30 Ethyl Alcohol < 10 mg/dL (0-10) 11/02/24 23:43 Hepatitis A IgM Ab Non-reactive (No nreactive) 11/02/24 23:43 Hep Bs Antigen Non-reactive (No nreactive) 11/02/24 23:43 Hep Bs Antibody 125.7 (11.5-1000 ) 11/02/24 23:43 Hep B Core Total A b Non-reactive (No nreactive) 11/02/24 23:43 Hepatitis C Antibo dy Non-reactive (No nreactive) 11/02/24 23:43 HIV 1&2 Ab & HIV 1 Ag Non-reactive (No n-Reactiv) 11/02/24 23:43 HIV 1&2 Antibody Non-reactive (No n-Reactiv) 11/02/24 23:43 Vitals: Last Vital Signs Temp 98.6 F 11/05/24 06:00 Pulse 60 11/05/24 06:00 Resp 15 11/05/24 06:00 BP 100/62 11/05/24 06:00 Pulse Ox 98 11/05/24 06:00 O2 Del Method Room Air 11/05/24 06:00 Discharge Plan Discharge Patient Disposition: Home Condition: Stable Prescriptions: New ciprofloxacin HCl 500 mg Tablet 500 mg PO BID@0900,2100 8 Days Qty: 16 0RF metronidazole 500 mg Tablet 500 mg PO BID 5 Days Qty: 10 0RF olanzapine [Zyprexa] 5 mg tablet 5 mg PO QPM Qty: 30 1RF No Action No Known Home Medications Discharge Order = DC NOW: Discharge Order (Routine); Ordered 11/05/24 Ordered By: Rivera Day Referrals: [facility] [Outside, Counselor - Professional] - 11/11/24 12:30 pm Referral Note: Initial assessment for services with Safia Millan. Arrive 12:30pm to complete paperwork. Anna Marie Chandler NP [Primary Care Provider, [facility]] - 11/13/24 10:40 am Discharge Diet: Usual diet Discharge Activity: Resume usual activity Patient Instructions: Ciprofloxacin (By mouth) (Cipro), Metronidazole (By mouth) (Flagyl, Flagyl 375, Flagyl ER, Likmez), Olanzapine (By mouth) (Zyprexa, Zyprexa Zydis), Methamphetamine Use Disorder (GEN), Opioid Safety, Patient Portal & John Instructions Discharge Attestations NPU Time Spent in Discharge Care*: less than 30 min Specific Discharge Activities: Specific discharge activities: educating patient, discussing with case assistant/social workers/dc planners and documenting/other paperwork Coding Level of Care Code Acute Code for Chg Fwd Diagnoses Substance-induced psychotic disorder F19.959
[2024-11-05 14:00] VITALS: BP 111/71; PULSE 67; RESP 18; TEMP 37.2; O2SAT 99
[2024-11-05 14:26] VITALS: BP 111/71; PULSE 67; RESP 18; TEMP 37.2; O2SAT 99
[2024-11-05 14:41] LABS: C.Diff PCR (Lab) NEGATIVE (Negative)
== END 2024-11-05 15:31 | disposition home or self-care (01) | DRG 897 ==
LOC: ER 23:21 → NP 11-03 00:02 → ER IP 11-03 07:40 → NP 11-03 12:26
PROVIDERS: Emergency Medicine; Student in an Organized Health Care Education/Training Program; Admitting Provider Internal Medicine; Emergency Provider Family Medicine; Visit Provider Psychiatry & Neurology Psychiatry
DX: F15.159 Other stimulant abuse with stimulant-induced psychotic disorder, unspecified (principal); N39.0 Urinary tract infection, site not specified; Z59.00 Homelessness unspecified; F17.200 Nicotine dependence, unspecified, uncomplicated
CPT/HCPCS: 36415; 70450; 71045; 74176; 80053; 80306; 80307; 81001; 81025; 83540; 83550; 83605; 83630; 83735; 84100; 85025; 86705; 86706; 86709; 86803; 87040; 87045; 87086; 87177; 87209; 87340; 87427; 87449; 87493; 87806; 96372; 96374; 97150; 97165; 99285; J0696; J1644; J2060; J7030; J7120; J9999

== ENCOUNTER 2025-01-02 01:59 | Inpatient (IN) | payer MEDICAID, SELFPAY ==
--- NOTE | 2025-01-02 02:00 | ECG_ITS ---
[facility] Test Date: 2025-01-02 Pat Name: Leah Rosa Department: Room: Gender: Female Head Teacher: : 1990 Requested By: Dez Jones Order Number: [id number] Lakhani MD: Carley Sanchez M.D. Measurements Intervals [place] Rate: 73 P: 144 OR: 143 QRS: 113 QRSD: 87 T: 71 QT: 366 QTc: 405 Interpretive Statements SINUS RHYTHM WITH MARKED SINUS ARRHYTHMIA RIGHT AXIS DEVIATION [QRS AXIS > 100] No previous ECG available for comparison Electronically Signed On 01-03-2025 14:37:48 CDT by Carley aSnchez M.D. [email or web address]
[2025-01-02 02:07] VITALS: BMI 25.6
[2025-01-02 02:19] LABS: Hematocrit 41.7 % (36-47); Hemoglobin 14.00 g/dL (11.27-16.99); Mean Corpuscular HGB Conc 33.6 g/dL (30-55); Mean Corpuscular Hemoglobin 30.0 pg (27-33); Mean Corpuscular Volume 89.3 fl (85-98); Nucleated Red Blood Cells % 0 %; Platelet Count 269 10^3/cmm (157-399); Red Blood Count 4.67 10^6/uL (3.85-5.65); White Blood Count 8.13 10^3/uL (3.29-11.43)
[2025-01-02 02:37] LABS: Alanine Aminotransferase 10 U/L (0-33); Albumin Level 4.1 g/dL (3.5-5.2); Alcohol Level 13 mg/dL (0-10); Alkaline Phosphatase 61 U/L (35-105); Anion Gap 16.7 (5-19); Aspartate Amino Transferase 14 U/L (0-32); Blood Urea Nitrogen 6 mg/dL (6-20); Calcium 8.5 mg/dL (8.5-10.5); Carbon Dioxide 21 mmol/L (22-29); Chloride 105 mmol/L (98-107); Creatinine Clr Calc Pharmacy 97.2772; Globulin 2.4 g/dL (1.3-4.6); Glucose 113 mg/dL (65-115); Osmolality Calculated 286 mOsm/kg (285-295); Potassium 3.7 mmol/L (3.5-5.1); Salicylate 0.5 mg/dL (3-10); Sodium 139 mmol/L (136-145); Total Protein 6.5 g/dL (6.6-8.7)
--- NOTE | 2025-01-02 02:37 | PC.NURSE ---
Pt. walking back from the restroom and threw herself in the floor with sitter assisting her to the ground. Pt. then yelled out sorry son . She then apologized to everyone for her hallucinations.
[2025-01-02 02:40] LABS: Acetaminophen < 5.0 ug/mL (10-30)
[2025-01-02 02:45] LABS: Glucose Urine UA Negative (Normal); Nitrate Urine Negative (Negative); Specific Gravity, Urine 1.024 (1.005-1.030)
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
[2025-01-02 02:52] LABS: PCP Screen Urine Negative (Negative)
[2025-01-02 02:56] LABS: Add Urine Microscopic? YES; UA Manual Slide Review YES
--- NOTE | 2025-01-02 03:53 | PC.NURSE ---
96 Hour Involuntary Hold Patient Rights have been reviewed with patient and a copy of the same has been provided to her. [employer] was present at bedside during the presentation of Rights.
[2025-01-02 04:01] VITALS: BP 127/84; PULSE 69; RESP 16; TEMP 36.4; O2SAT 100
[2025-01-02 04:06] VITALS: BP 144/92; PULSE 68; RESP 18; TEMP 36.6; O2SAT 99
--- NOTE | 2025-01-02 04:20 | PC.NURSE ---
Patient ran from ER room 7, ran to room 9 and attempted to enter pediatric psych's room, yelling unclear statement about her son.
--- NOTE | 2025-01-02 05:05 | PC.ADMIT ---
Homeless Admission Note: The patient,Leah Rosa,34 y/o, was given written information regarding hospital policies, unit procedures and contact persons. Patient's smoking status: current every day smoker. Patient skin assessment was nearly unremarkable. she has a few cuts randomly on her body. no significant bruising noted. pt unccoperative with assessment. pt bra removed and pt wanded without incident. she arrived to unit in green cloth scrubs. Vital Signs - 8 hr 01/02/25 04:01 01/02/25 04:01 01/02/25 04:06 Temperature 97.6 F 97.8 F Pulse Rate 69 69 68 Respiratory Rate 16 18 Blood Pressure 127/84 127/84 144/92 Pulse Oximetry 100 100 99 Oxygen Delivery Method Room Air
[2025-01-02 06:00] VITALS: BP 144/92; PULSE 68; RESP 18; TEMP 36.6; O2SAT 99
--- NOTE | 2025-01-02 09:17 | PC.OT ---
OT EVAL ATTEMPTED IN A.M.; PATIENT SLEEPING SOUNDLY
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
[2025-01-02] MEDS: diphenhydrAMINE 50 mg/mL SDV 1mL IM (12:47)
[2025-01-02] MEDS: LORazepam 1 MG/0.5 ML injection 2 MG IM (12:47)
[2025-01-02] MEDS: haloperidol inj 5 mg/mL INJ 1 mL IM (12:47)
[2025-01-02 13:44] VITALS: BP 96/68; PULSE 86; RESP 16; TEMP 36.6; O2SAT 100
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
[2025-01-02 19:51] VITALS: RESP 16
[2025-01-03 06:00] VITALS: RESP 16
--- NOTE | 2025-01-03 10:37 | W.PM.NPUPNS ---
Subjective NPU Subjective: Patient presented today reporting she is doing a little better than yesterday. He continued to be isolative per staff reports and direct observation. She reports that she acknowledges that she is relapsed and had limited desire to be a helpful historian but reported that things have been really intense and stressful since she left here 2 months ago. She had not been consistent with the medication and we discussed plans to restart her medication and start looking at what it would take to assist her in being sober and in a situation that will be helpful for her overall. She denied any side of medication. Mental Status Exam MSE Comments: This is a well-nourished well-developed female in hospital scrubs with limited grooming and adequate eye contact. No abnormal movements except for psychomotor retardation. Cooperative with exam in mild to moderate distress. Speech was decreased rate and volume. Mood described as stressed out affect anxious and subdued. Thought process linear to organized. Thought con hallucinations tent: Patient denied current suicidal or homicidal ideation, there were no delusions reported or noted, he denied any auditory or visual . Attention and concentration were intact. And memory appeared somewhat reliable but none were formally tested. She is alert and oriented x 3. Insight and judgment are limited and impulse control is impaired. Vitals/I&O/Wt Last Vital Signs Temp 97.9 F 01/02/25 13:44 Pulse 86 01/02/25 13:44 Resp 16 01/03/25 06:00 BP 96/68 01/02/25 13:44 Pulse Ox 100 01/02/25 13:44 O2 Del Method Room Air 01/03/25 06:00 01/02/25 01/03/25 01/03/25 22:59 06:59 14:59 Intake Total 360 / 360 Balance 360 / 360 Weight last 48 hrs Weight 63.503 kg Data NPU 01/02/25 02:14 01/02/25 02:14 A&P Assessment and plan 1. Substance-induced psychotic disorder: Plan: This is a 34-year-old female who presents 2 months after previous hospitalization here for likely substance-induced psychosis returning again with a UDS positive for amphetamines, cannabis and a BAL that is positive for alcohol currently presenting fairly more alert but had not really out of it/obtunded likely secondary to crashing from methamphetamine and receiving Zyprexa for her bizarre and aimless behaviors upon admission. 1. Continue current medication. 2. Continue every 15 minute checks for safety. 3. Encourage individual, group and milieu therapy. 4. Encourage sober living treatment after discharge at the highest level care to which she is willing to commit. 5. Evaluate against the backdrop of the 96-hour hold. 6. Obtain collateral information. PDMP PDMP Reviewed: Not Reviewed Involuntary Hold Information Hold Status: Legal Status: 96 Hour Hold Date/Time Hold Expires: 96^01/08/25@0317 Attestations NPU Medical Necessity Statement*: Inpatient hospitalization is medically necessary and the clinically appropriate intervention at this time. We will monitor/initiate medications and make changes as indicated. The patient?s likely length of stay is 4-6 days. ? Coding Level of Care Code Acute Code for [facility] Fwd Diagnoses Substance-induced psychotic disorder F19.959
[2025-01-03 13:39] VITALS: BP 108/69; PULSE 69; RESP 16; O2SAT 99
[2025-01-03 22:00] VITALS: BP 104/74; PULSE 82; RESP 17; TEMP 36.7; O2SAT 98
[2025-01-03 22:03] LABS: Glucose Urine UA Negative (Normal); Nitrate Urine Negative (Negative); Specific Gravity, Urine 1.006 (1.005-1.030)
[2025-01-03 22:12] LABS: UA Manual Slide Review YES
[2025-01-03 22:13] LABS: Add Urine Microscopic? YES
[2025-01-04 04:12] VITALS: BMI 25.9
[2025-01-04 06:00] VITALS: BP 110/72; PULSE 95; RESP 16; TEMP 37; O2SAT 97
--- NOTE | 2025-01-04 12:46 | P.NPUPN_ITS ---
Subjective NPU 2 Subjective: Patient presented today reporting that overall he is feeling better but can still use some rest. She reports that most of the lethargy that we saw was likely related to her use. She seems somewhat ambivalent about discussing recovery oriented issues and we continued to talk about a plan for working with the social work team for options for treatment moving forward. We discussed the importance of having some recovery driven treatment likely inpatient if possible to get her a good start to avoid this being the new normal. Denied any side effects of medication other than feeling a little tired. But is unclear whether this is medication or the situation. Mental Status Exam 2 MSE Comments: This is a well-nourished well-developed female in hospital scrubs with limited grooming and adequate eye contact. No abnormal movements except for mild psychomotor retardation. Cooperative with exam in mild to moderate distress. Speech was decreased rate and volume. Mood described as stressed out, but maybe a little better affect anxious and subdued. Thought process linear to organized. Thought content: Patient denied current suicidal or homicidal ideation, there were no delusions reported or noted, he denied any auditory or visual hallucinations. Attention and concentration were intact. And memory appeared somewhat reliable but none were formally tested. She is alert and oriented x 3. Insight and judgment are limited and impulse control is impaired. Vitals/I&O/Wt Last Vital Signs Temp 98.6 F 01/04/25 06:00 Pulse 95 01/04/25 06:00 Resp 16 01/04/25 06:00 BP 110/72 01/04/25 06:00 Pulse Ox 97 01/04/25 06:00 O2 Del Method Room Air 01/04/25 06:00 Weight last 48 hrs Weight 64.41 kg Data NPU 01/02/25 02:14 01/02/25 02:14 A&P Assessment and plan 1. Substance-induced psychotic disorder: Plan: This is a 34-year-old female who presents 2 months after previous hospitalization here for likely substance-induced psychosis returning again with a UDS positive for amphetamines, cannabis and a BAL that is positive for alcohol currently presenting fairly more alert but had not really out of it/obtunded likely secondary to crashing from methamphetamine and receiving Zyprexa for her bizarre and aimless behaviors upon admission. 1. Continue current medication. 2. Continue every 15 minute checks for safety. 3. Encourage individual, group and milieu therapy. 4. Encourage sober living treatment after discharge at the highest level care to which she is willing to commit. 5. Evaluate against the backdrop of the 96-hour hold. 6. Obtain collateral information. PDMP PDMP Reviewed: Not Reviewed Involuntary Hold Information 2 Hold Status: Legal Status: 96 Hour Hold Date/Time Hold Expires: 9 6^01/08/25@0317 Attestations NPU 2 Medical Necessity Statement*: Inpatient hospitalization is medically necessary and the clinically appropriate intervention at this time. We will monitor/initiate medications and make changes as indicated. The patient?s likely length of stay is 3-5 days. ? Coding Level of Care Code Acute Code for Chg Fwd Diagnoses Substance-induced psychotic disorder F19.959
[2025-01-04 13:28] VITALS: BP 107/68; PULSE 69; RESP 16; TEMP 36.8; O2SAT 98
[2025-01-04 21:01] VITALS: BP 99/56; PULSE 76; RESP 18; TEMP 36.5; O2SAT 98
[2025-01-05 06:00] VITALS: BP 113/75; PULSE 59; RESP 17; TEMP 36.3; O2SAT 98
--- NOTE | 2025-01-05 08:06 | P.NPUPN_ITS ---
Subjective NPU 2 Subjective: Patient presented today reporting that she is feeling a bit better and looking to options for what to do next. Challenging for her to focus mostly on her choices including her drug use as she was still having frustration about the wrong she feels have happened to her since she moved to the area. She talked about the possibility of returning back to her previous job environment saying that she had recently been and was crying for things have not gone well since she has made that decision. She was ambivalent about any intensive sober living treatment. She was defensive about feeling like everybody thinks it is all about the drugs. . We discussed that it was not all about the drugs but was about managing those things that she has control over. She denied any side effects to the medication. Mental Status Exam 2 MSE Comments: This is a well-nourished well-developed female in hospital scrubs with limited grooming and adequate eye contact. No abnormal movements except for mild psychomotor retardation. Cooperative with exam in mild distress. Speech was more normal rate and volume. Mood described as better, affect less anxious and subdued. Thought process linear to organized. Thought content: Patient denied current suicidal or homicidal ideation, there were no delusions reported or noted, she denied any auditory or visual hallucinations. Attention and concentration were intact. and memory appeared somewhat reliable but none were formally tested. She is alert and oriented x 3. Insight and judgment are limited, but improving and impulse control is improving. Vitals/I&O/Wt Last Vital Signs Temp 97.4 F L 01/05/25 06:00 Pulse 59 L 01/05/25 06:00 Resp 17 01/05/25 06:00 BP 113/75 01/05/25 06:00 Pulse Ox 98 01/05/25 06:00 O2 Del Method Room Air 01/05/25 06:00 Weight last 48 hrs Weight 64.41 kg Data NPU 01/02/25 02:14 01/02/25 02:14 A&P Assessment and plan 1. Substance-induced psychotic disorder: Plan: This is a 34-year-old female who presents 2 months after previous hospitalization here for likely substance-induced psychosis returning again with a UDS positive for amphetamines, cannabis and a BAL that is positive for alcohol currently presenting fairly more alert but had not really out of it/obtunded likely secondary to crashing from methamphetamine and receiving Zyprexa for her bizarre and aimless behaviors upon admission. 1. Continue current medication. 2. Continue every 15 minute checks for safety. 3. Encourage individual, group and milieu therapy. 4. Encourage sober living treatment after discharge at the highest level care to which she is willing to commit. 5. Evaluate against the backdrop of the 96-hour hold. 6. Obtain collateral information. PDMP PDMP Reviewed: Not Reviewed Involuntary Hold Information 2 Hold Status: Legal Status: 96 Hour Hold Date/Time Hold Expires: 9 6^01/08/25@0317 Attestations NPU 2 Medical Necessity Statement*: Inpatient hospitalization is medically necessary and the clinically appropriate intervention at this time. We will monitor/initiate medications and make changes as indicated. The patient?s likely length of stay is 1-3 days. ? Coding Level of Care Code Acute Code for Chg Fwd Diagnoses Substance-induced psychotic disorder F19.959
[2025-01-05 14:00] VITALS: BP 108/78; PULSE 68; RESP 16; TEMP 36.8; O2SAT 98
[2025-01-05 19:51] VITALS: BP 97/64; PULSE 74; RESP 16; TEMP 36.7; O2SAT 98
[2025-01-06 06:00] VITALS: BP 100/66; PULSE 64; RESP 16; TEMP 36.6; O2SAT 98
[2025-01-06 13:59] VITALS: BP 106/62; PULSE 74; RESP 16; TEMP 36.6; O2SAT 100
--- NOTE | 2025-01-06 16:04 | P.NPUPN_ITS ---
Subjective NPU 2 Subjective: Patient presented today reporting that she is feeling all right. She endorsed that things were going okay but she is struggling with ambivalence per staff reports and direct conversation. She continues to while full on whether or not drug and alcohol treatment and some kind of intensive fashion is necessary and we discussed that in both hospitalizations in the past 2 months she has had drug use to be a part of the equation. She seems to have significant reticence about anyone seeing it that way and making this all about the drugs. She talked a lot about the difficulty that she is having with her family having moved here and feeling like doing things that she was hoping to get support by that she is not getting but she continues to lean towards staying here versus returning home. We discussed the tentative plan for discharge tomorrow and she denied any side effects of medication. Mental Status Exam 2 MSE Comments: This is a well-nourished well-developed female in hospital scrubs with limited grooming and adequate eye contact. No abnormal movements except for mild psychomotor retardation. Cooperative with exam in no acute distress. Speech was more normal rate and volume. Mood described as better, affect congruent. Thought process linear to organized. Thought content: Patient denied current suicidal or homicidal ideation, there were no delusions reported or noted, she denied any auditory or visual hallucinations. Attention and concentration were intact. and memory appeared somewhat reliable but none were formally tested. She is alert and oriented x 3. Insight and judgment are limited, but improving and impulse control is improving. Vitals/I&O/Wt Last Vital Signs Temp 97.8 F 01/06/25 13:59 Pulse 74 01/06/25 13:59 Resp 16 01/06/25 13:59 BP 106/62 01/06/25 13:59 Pulse Ox 100 01/06/25 13:59 O2 Del Method Room Air 01/06/25 13:59 Data NPU 01/02/25 02:14 01/02/25 02:14 A&P Assessment and plan 1. Substance-induced psychotic disorder: Plan: This is a 34-year-old female who presents 2 months after previous hospitalization here for likely substance-induced psychosis returning again with a UDS positive for amphetamines, cannabis and a BAL that is positive for alcohol currently presenting fairly more alert but had not really out of it/obtunded likely secondary to crashing from methamphetamine and receiving Zyprexa for her bizarre and aimless behaviors upon admission. 1. Continue current medication. 2. Continue every 15 minute checks for safety. 3. Encourage individual, group and milieu therapy. 4. Encourage sober living treatment after discharge at the highest level care to which she is willing to commit. 5. Evaluate against the backdrop of the 96-hour hold. 6. Obtain collateral information. Tentative plan for discharge tomorrow. PDMP PDMP Reviewed: Not Reviewed Involuntary Hold Information 2 Hold Status: Legal Status: 96 Hour Hold Date/Time Hold Expires: 9 6^01/08/25@0317 Attestations NPU 2 Medical Necessity Statement*: Inpatient hospitalization is medically necessary and the clinically appropriate intervention at this time. We will monitor/initiate medications and make changes as indicated. The patient?s likely length of stay is 1-3 days. ? Coding Level of Care Code Acute Code for Chg Fwd Diagnoses Substance-induced psychotic disorder F19.959
[2025-01-06 20:31] VITALS: BP 103/65; PULSE 90; RESP 18; TEMP 36.8; O2SAT 98
[2025-01-07 06:00] VITALS: BP 88/56; PULSE 68; RESP 12; TEMP 37.1; O2SAT 98
[2025-01-07 13:09] VITALS: BP 108/76; PULSE 82; RESP 16; TEMP 37.1; O2SAT 100
[2025-01-07 16:34] VITALS: BP 108/76; PULSE 82; RESP 16; TEMP 37.1; O2SAT 100
== END 2025-01-07 17:59 | disposition home or self-care (01) | DRG 897 ==
LOC: ER 03:42 → NP 03:49
PROVIDERS: Admitting Provider Psychiatry & Neurology Psychiatry; Emergency Provider Student in an Organized Health Care Education/Training Program; Visit Provider Psychiatry & Neurology Psychiatry
DX: F15.159 Other stimulant abuse with stimulant-induced psychotic disorder, unspecified (principal); F17.200 Nicotine dependence, unspecified, uncomplicated; F10.10 Alcohol abuse, uncomplicated; Y90.0 Blood alcohol level of less than 20 mg/100 ml
CPT/HCPCS: 80053; 80306; 80307; 81001; 85025; 93005; 96372; 97150; 97165; 99285; J1200; J1630; J2060; J9999

== ENCOUNTER 2025-02-27 03:06 | Emergency (ER) | payer OTHER, MEDICAID, SELFPAY ==
[2025-02-27 03:17] VITALS: BP 115/68; PULSE 69; RESP 18; TEMP 36.6; O2SAT 97; BMI 28.5
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
[2025-02-27 03:42] VITALS: BP 123/83; PULSE 73; O2SAT 98
[2025-02-27 04:21] LABS: Hematocrit 46.1 % (36-47); Hemoglobin 15.40 g/dL (11.27-16.99); Mean Corpuscular HGB Conc 33.4 g/dL (30-55); Mean Corpuscular Hemoglobin 30.4 pg (27-33); Mean Corpuscular Volume 90.9 fl (85-98); Nucleated Red Blood Cells % 0 %; Platelet Count 342 10^3/cmm (157-399); Red Blood Count 5.07 10^6/uL (3.85-5.65); White Blood Count 11.80 10^3/uL (3.29-11.43)
[2025-02-27 04:39] LABS: Alanine Aminotransferase 15 U/L (0-33); Albumin Level 4.2 g/dL (3.5-5.2); Alkaline Phosphatase 77 U/L (35-105); Anion Gap 11.9 (5-19); Aspartate Amino Transferase 13 U/L (0-32); Blood Urea Nitrogen 12 mg/dL (6-20); Calcium 8.8 mg/dL (8.5-10.5); Carbon Dioxide 25 mmol/L (22-29); Chloride 105 mmol/L (98-107); Globulin 2.6 g/dL (1.3-4.6); Glucose 133 mg/dL (65-115); Osmolality Calculated 288 mOsm/kg (285-295); Potassium 3.9 mmol/L (3.5-5.1); Sodium 138 mmol/L (136-145); Total Protein 6.8 g/dL (6.6-8.7)
[2025-02-27 04:43] LABS: Acetaminophen < 5.0 ug/mL (10-30); Alcohol Level < 10 mg/dL (0-10); Salicylate < 0.3 mg/dL (3-10)
--- NOTE | 2025-02-27 04:47 | XRR_ITS ---
PROCEDURE INFORMATION: Exam: XR Left Ankle Exam date and time: 02/27/2025 5:00 AM Age: 34 years old Clinical indication: Pain; Ankle; Left TECHNIQUE: Imaging protocol: Radiologic exam of the left ankle. Views: 3 or more views. COMPARISON: No relevant prior studies available. FINDINGS: Bones/joints: Possible linear cortex avulsion fracture from the distal talus. Unremarkable joint spaces. No significant degenerative joint changes. Unremarkable bone mineralization. Soft tissues: Mild soft tissue edema. XR/XR ankle LT min 3V* [id number] IMPRESSION: Cortical avulsion fracture from the talus suspected.
== END 2025-02-27 05:14 | disposition home or self-care (01) ==
PROVIDERS: Emergency Provider Family Medicine
DX: S93.402A Sprain of unspecified ligament of left ankle, initial encounter (principal); Z59.02 Unsheltered homelessness; X58.XXXA Exposure to other specified factors, initial encounter
CPT/HCPCS: 36415; 73610; 80053; 80307; 85025; 99284